=== PATIENT | female | born 1965 | race Caucasian/White ===

== ENCOUNTER 2018-02-16 09:32 | Emergency (ER) | payer MEDICAID, OTHER, SELFPAY ==
[2018-02-16 09:34] VITALS: BMI 25.4
[2018-02-16 09:51] VITALS: BP 148/78; PULSE 87; TEMP 98.4; O2SAT 100
--- NOTE | 2018-02-16 10:12 | C.PDOC ---
History Of Present Illness 52 year old female presets to the ED c/o sore throat, productive cough with green phlegm for the past 3 days. Patient denies fever, chills, nausea, vomit, recent travel, sick contacts. Time Seen by Provider: 02/16/18 09:58 Chief Complaint (Nursing): Cough, Cold, Congestion History Per: Patient History/Exam Limitations: no limitations Onset/Duration Of Symptoms: Days Current Symptoms Are (Timing): Still Present Location Of Pain: Throat Sick Contacts (Context): None Associated Symptoms: Sore Throat, Cough, Sputum. denies: Fever, Chills Ear Symptoms: Bilateral: None Recent travel outside of the [place]: No Additional History Per: Patient Past Medical History Reviewed: Historical Data, Nursing Documentation, Vital Signs Vital Signs: Last Vital Signs Temp 98.4 F 02/16/18 09:45 Pulse 87 02/16/18 09:45 Resp 20 02/16/18 10:25 BP 148/78 02/16/18 09:45 Pulse Ox 100 02/16/18 10:12 - Medical History PMH: No Chronic Diseases Surgical History: No Surg Hx Family History: States: Unknown Family Hx - Social History Hx Tobacco Use: No Hx Alcohol Use: No Hx Substance Use: No - Immunization History Hx Tetanus Toxoid Vaccination: No Hx Influenza Vaccination: No Hx Pneumococcal Vaccination: No Review Of Systems Constitutional: Negative for: Fever, Chills ENT: Positive for: Throat Pain. Negative for: Nose Congestion Cardiovascular: Negative for: Chest Pain Respiratory: Positive for: Cough, Sputum Gastrointestinal: Negative for: Nausea, Vomiting Skin: Negative for: Rash Physical Exam - Physical Exam Appears: Non-toxic, No Acute Distress Skin: Normal Color, Warm, Dry Head: Atraumatic, Normacephalic Eye(s): bilateral: Normal Inspection Ear(s): Bilateral: Normal Nose: No Discharge Oral Mucosa: Moist Throat: Erythema (tonsillar), Exudate (tonsillar), Other (tonsillar hyperthropy. No abscess noted) Neck: Normal ROM, Supple Respiratory: Normal Breath Sounds, No Rales, No Rhonchi, No Wheezing Extremity: Normal ROM, No Tenderness, No Swelling Neurological/Psych: Oriented x3 Gait: Steady ED Course And Treatment O2 Sat by Pulse Oximetry: 100 (On RA) Pulse Ox Interpretation: Normal Medical Decision Making Medical Decision Making: Assessment: pharyngitis, bronchitis Plan: * Zithromax 500 mg PO On reassessment, patient is resting comfortably, and is in no acute distress. Patient was instructed to follow up with physician/clinic in 1-2 days for further evaluation. Disposition Counseled Patient/Family Regarding: Studies Performed, Diagnosis, Need For Followup, Rx Given - Disposition Referrals: [facility] [Outside] Disposition: HOME/ ROUTINE Disposition Time: 10:10 Condition: STABLE Additional Instructions: follow up with your doctor or medical clinic in 2 days call to make an appointment take medications as prescribed return to ER if symptoms worsens or progress Prescriptions: Azithromycin [Zithromax] 250 mg PO DAILY #4 tab Benzonatate [Tessalon Perles] 100 mg PO BID PRN #14 tab PRN Reason: Cough Instructions: Sore Throat in Adults, Acute Bronchitis Forms: Gen Discharge Inst Malawian, [facility] (Malawian) Print Language: ARMENIAN - Clinical Impression Clinical Impression: Bronchitis, Pharyngitis - Scribe Statement The provider has reviewed the documentation as recorded by the Scriblianna Sandoval All medical record entries made by the Zacharyiblianna were at my direction and personally dictated by me. I have reviewed the chart and agree that the record accurately reflects my personal performance of the history, physical exam, medical decision making, and the department course for this patient. I have also personally directed, reviewed, and agree with the discharge instructions and disposition.
[2018-02-16 10:26] VITALS: RESP 20
== END 2018-02-16 10:25 | disposition home or self-care (01) ==
LOC: C.ER 09:32
DX: J40 Bronchitis, not specified as acute or chronic (principal); J02.9 Acute pharyngitis, unspecified

== ENCOUNTER 2018-02-19 09:04 | Emergency (ER) | payer OTHER ==
[2018-02-19 09:04] VITALS: BMI 25.4
[2018-02-19 09:21] VITALS: RESP 18; O2SAT 99
--- NOTE | 2018-02-19 09:59 | C.PDOC ---
History Of Present Illness <Tita Link - Last Filed: 02/19/18 10:40> <Kavitha Berman DO - Last Filed: 02/20/18 09:43> Patient is a 52 year old female who denies PMHx who presents to ER with complaint of cough, body aches, chills, headache, productive cough. She reports feeling unwell for the past week. She was seen in ED on 02/16/18 and given Zithromax #4 tablets and tessalon perles. Patient has taken 3 of 4 Zithromax tablets, reports no improvement in symptoms. Patient reports subjective fever as well. Patient denies nausea, vomiting. Denies flu shot this year. (Kavitha Berman DO) <Tita Link - Last Filed: 02/19/18 10:40> History Per: Patient Onset/Duration Of Symptoms: Days (one week) Current Symptoms Are (Timing): Still Present Location Of Pain: Diffuse Myalgias, Headache Sick Contacts (Context): None Associated Symptoms: Fever, Chills, Sore Throat, Cough, Sputum, Myalgias, Nasal Congestion <Kavitha Berman DO - Last Filed: 02/20/18 09:43> Time Seen by Provider: 02/19/18 09:38 Chief Complaint (Nursing): Cough, Cold, Congestion Past Medical History - Medical History PMH: No Chronic Diseases Surgical History: Family History: States: Unknown Family Hx - Social History Hx Tobacco Use: No Hx Alcohol Use: No Hx Substance Use: No - Immunization History Hx Tetanus Toxoid Vaccination: No Hx Influenza Vaccination: No Hx Pneumococcal Vaccination: No <Kavitha Berman DO - Last Filed: 02/20/18 09:43> Vital Signs: Last Vital Signs Temp 99.5 F 02/19/18 10:46 Pulse 74 02/19/18 10:46 Resp 18 02/19/18 10:46 BP 134/71 02/19/18 10:46 Pulse Ox 99 02/19/18 11:25 Review Of Systems Constitutional: Positive for: Fever, Chills, Malaise ENT: Positive for: Nose Congestion, Throat Pain Cardiovascular: Negative for: Chest Pain, Palpitations Respiratory: Positive for: Cough, Sputum. Negative for: Shortness of Breath Gastrointestinal: Negative for: Nausea, Vomiting, Abdominal Pain Genitourinary: Negative for: Dysuria, Frequency <Kavitha Berman DO - Last Filed: 02/20/18 09:43> Physical Exam - Physical Exam Appears: Non-toxic, No Acute Distress Skin: Normal Color, Warm Head: Atraumatic, Normacephalic Eye(s): bilateral: EOMI Ear(s): Bilateral: Normal Nose: Other (swollen erythematous nasal turbinates) Oral Mucosa: Moist Tongue: Normal Appearing Lips: Normal Appearing Throat: Erythema, No Exudate, Other (enlarged tonsils b/l no exudates) Neck: Normal ROM Lymphatic: Adenopathy (cervical) Chest: Symmetrical, No Tenderness Cardiovascular: Rhythm Regular Respiratory: Normal Breath Sounds, No Accessory Muscle Use, No Rales, No Rhonchi , No Wheezing Gastrointestinal/Abdominal: Bowel Sounds, Soft, No Tenderness Extremity: No Tenderness, No Pedal Edema Neurological/Psych: Oriented x3 <Kavitha Berman DO - Last Filed: 02/20/18 09:43> ED Course And Treatment O2 Sat by Pulse Oximetry: 99 <Kavitha Berman DO - Last Filed: 02/20/18 09:43> Medical Decision Making <Tita Link - Last Filed: 02/19/18 10:40> <Kavitha Berman DO - Last Filed: 02/20/18 09:43> Medical Decision Making: Patient re-evaluated after ibuprofen. Patient feeling better. Discussed with patient that she likely has viral illness but is out of window of treatment for Tamiflu. Patient to continue supportive care with Tylenol and Ibuprofen as needed for body aches. Patient can continue Tessalon perles for cough as needed. (Kavitha Berman DO) Disposition Counseled Patient/Family Regarding: Need For Followup - Disposition Disposition Time: 10:40 - POA Present On Arrival: None <Tita Link - Last Filed: 02/19/18 10:40> <Kavitha Berman DO - Last Filed: 02/20/18 09:43> - Disposition Referrals: [facility] [Outside] Disposition: HOME/ ROUTINE Condition: STABLE Instructions: Upper Respiratory Infection (ED) Forms: Gen Discharge Inst Japanese, [facility] (Japanese), Work Excuse - Clinical Impression Clinical Impression: Influenza-like illness - PA / REFRIGERATION TECHNICIAN / Resident Statement DAVID has reviewed & agrees with the documentation as recorded. / has examined the patient and agrees with the treatment plan. <Kavitha Berman DO - Last Filed: 02/20/18 09:43>
[2018-02-19 10:46] VITALS: BP 134/71; PULSE 74; TEMP 99.5
== END 2018-02-19 10:51 | disposition home or self-care (01) ==
LOC: C.ER 09:04
DX: J11.1 Influenza due to unidentified influenza virus with other respiratory manifestations (principal)